=== PATIENT | female | born 1980 | race Caucasian/White ===

== ENCOUNTER 2017-07-08 07:00 | Inpatient (IN) | payer MEDICAID, OTHER, SELFPAY ==
[2017-07-11] MEDS ORDERED: HYDROcodone/Acetaminophen 5/325 mg Tablet PO PRN ×2 (07:07→20:42)
[2017-07-11] MEDS ORDERED: Acetaminophen 500 MG TAB PO PRN (07:07)
[2017-07-11] MEDS ORDERED: LR 500 ML/Oxytocin 10 units 500 ML IV SCH ×2 (07:07)
[2017-07-11] MEDS ORDERED: Ibuprofen 800 MG TAB PO PRN (07:07)
[2017-07-11] MEDS ORDERED: Promethazine HCl 25 MG/ML VIAL IM PRN ×2 (07:07→10:35)
[2017-07-11] MEDS ORDERED: Misoprostol 200 MCG TAB PR PRN (07:07)
[2017-07-11] MEDS ORDERED: Acetaminophen/Codeine 30-300mg Tablet PO PRN ×2 (07:07→20:42)
[2017-07-11] MEDS ORDERED: Ondansetron HCl/PF 4 MG/2 ML Vial IVP PRN ×3 (07:07→20:42)
[2017-07-11] MEDS ORDERED: Lidocaine 1% (PF) 30 ML VIAL SC PRN (07:07)
[2017-07-11] MEDS: Lactated Ringer's 1,000 ML IV SCH ×2 (07:40→09:33)
[2017-07-11 08:02] VITALS: BMI 32.5
[2017-07-11 08:10] LABS: Hemoglobin 13.5 g/dL (12.0-16.0); Mean Corpuscular HGB CONC 34.4 g/dL (32.0-36.0); Mean Corpuscular Volume 90.1 fl (81.0-99.0); Mean Platelet Volume 8.8 fL (7.4-10.4); Platelet Count 138 thou/uL (130-400); RBC Distribution Width 12.1 % (11.5-14.5); Red Blood Cell (RBC) Count 4.36 mill/uL (4.20-5.40); White Blood Cell (WBC) Count 6.7 thou/uL (4.8-10.8)
[2017-07-11 08:32] LABS: Syphilis Antibody Nonreactive (Nonreactive); Syphilis Antibody Index 0.04 S/CO (<1.00 Non-Reactive)
[2017-07-11 08:34] LABS: HBSAg Index 0.11 S/CO (0-0.99); Hep B Surf Ag Non-Reactive S/CO (NonReactive)
[2017-07-11] MEDS ORDERED: Fentanyl 4 mcg/Marc 0.1% Cadd 100 ML ONE (08:40)
[2017-07-11] MEDS ORDERED: Acetaminophen 325 MG TAB PO PRN (10:35)
[2017-07-11] MEDS ORDERED: Lactated Ringer's 500 ML IV PRN (10:35)
[2017-07-11] MEDS ORDERED: ePHEDrine/0.9% NaCl/PF SYRINGE 50 mg/10 ml SLOW IVP PRN (10:35)
[2017-07-11] MEDS ORDERED: Eucerin (Mineral Oil/Petrolatum,White) 30 gm Jar TOP PRN (10:35)
[2017-07-11] MEDS ORDERED: Naloxone HCl 0.4 mg/ml Vial IVP PRN ×2 (10:35)
[2017-07-11] MEDS ORDERED: diphenhydrAMINE 50 MG/ML VIAL IVP PRN (10:35)
[2017-07-11] MEDS ORDERED: Communication Order-Pharmacy FS SCH (10:45)
[2017-07-11] MEDS ORDERED: Fentanyl 4mcg/Marcaine 0.1% Cassette 100 ML EPIDURAL SCH (10:45)
[2017-07-11] MEDS: LR / Pitocin 40 units/1000 ml 1,000 ML IV PRN ×2 (16:54→18:09)
[2017-07-11] MEDS ORDERED: Milk Of Magnesia 30 ML UDCUP PO PRN (20:42)
[2017-07-11] MEDS ORDERED: Lanolin Ointment 7 GM TUBE TOP PRN (20:42)
[2017-07-11] MEDS ORDERED: diphenhydrAMINE 25 MG CAP PO PRN (20:42)
[2017-07-11] MEDS ORDERED: LR / Pitocin 40 units/1000 ml 1,000 ML IV SCH (20:42)
[2017-07-11] MEDS ORDERED: Benzocaine/Menthol 20-0.5% 60 ML CAN TOP PRN (20:42)
[2017-07-11] MEDS ORDERED: Preparation H Ointment 28 GM TUBE PR PRN (20:42)
[2017-07-11] MEDS ORDERED: Bisacodyl 10 MG SUPP PR PRN (20:42)
[2017-07-11] MEDS: Ibuprofen 800 MG TAB PO SCH (22:22)
[2017-07-11] MEDS: Docusate Calcium (SURFAK) 240 MG CAP PO SCH (22:23)
--- NOTE | 2017-07-12 01:05 | OP ---
DATE OF SURGERY: 07/11/2017 PREOPERATIVE DIAGNOSIS: A 38-week diamniotic dichorionic twin gestation in vertex-vertex presentatio n in labor. POSTOPERATIVE DIAGNOSIS: A 38-week diamniotic dichorionic twin gestation in vertex-vertex presentati on in labor. PROCEDURE: Normal spontaneous vaginal delivery and repair of first degree midline laceration, no com plications. The patient was admitted early on the day of delivery for induction at term 38 weeks with di-di twins in vertex-vertex presentation. The patient underwent amniotomy and Pitocin for induction with good progression of labor. The patient became complete and was transferred to the operating room for plan monika normal vaginal delivery. MIL[employer]IST laborist, Dr. Sandoval, was on standby in the room for attendance as well as nursery team. PROCEDURE IN DETAIL: The perineum was prepped and draped in the usual technique The patient complet e and pushing, normal spontaneous vaginal delivery of a viable female via vertex presentation without difficulty. breathed and cried spontaneously. Cord was clamped and cut, and the infa nt was handed to care of the neonatology team. Cord blood was collected and a cord clamp was placed over this umbilical cord. Noted the patient remained complete with second twin in vertex presentatio n confirmed by ultrasound. The patient pushing with spontaneous rupture of membranes, clear fluid. The patient delivered normal spontaneous vaginal delivery of a viable female from vertex prese ntation without difficulty. Cord was clamped and cut and handed to the care of the neonatolog y team. Cord blood was obtained. The placenta was delivered intact and together without difficulty and appeared complete, there was minimal bleeding noted. Noted there was a small first degree perine al laceration, which was repaired with 3-0 Vicryl in continuous fashion. Hemostasis was adequate. S ponge and instrument counts were correct. ESTIMATED BLOOD LOSS: 400 mL. DELIVERING SURGEON: Deborah Sotelo M.D. WEAPONS OFFICER: Nishi Leonardo, medical student III ANESTHETIC: Epidural. The patient to go to recovery room and babies in level 1 nursery in good condition.
[2017-07-12] MEDS: Ibuprofen 800 MG TAB PO SCH ×3 (06:20→22:01)
[2017-07-12 06:35] LABS: Hemoglobin 11.9 g/dL (12.0-16.0); Mean Corpuscular HGB CONC 33.8 g/dL (32.0-36.0); Mean Corpuscular Volume 91.7 fl (81.0-99.0); Mean Platelet Volume 8.4 fL (7.4-10.4); Platelet Count 113 thou/uL (130-400); RBC Distribution Width 12.2 % (11.5-14.5); Red Blood Cell (RBC) Count 3.83 mill/uL (4.20-5.40); White Blood Cell (WBC) Count 9.5 thou/uL (4.8-10.8)
[2017-07-12] MEDS: Prenatal Vitamin 1 TAB PO SCH (08:50)
[2017-07-12] MEDS: Docusate Calcium (SURFAK) 240 MG CAP PO SCH ×2 (08:50→21:05)
[2017-07-12] MEDS: Ferrous Sulfate 325 MG TAB PO SCH ×2 (08:51→16:48)
[2017-07-12] MEDS: CEFAZOLIN 1 GM, Syringe 2.5 ML in Sterile Water 7.5 ML SLOW IVP SCH ×2 (08:51→16:46)
[2017-07-12] MEDS ORDERED: Lidocaine 2% MPF 10 ML AMP (For Epidural Use) ONE (11:11)
[2017-07-12] MEDS ORDERED: Lidocaine 2% PF 5 ML VIAL ONE (11:11)
[2017-07-13] MEDS: Ibuprofen 800 MG TAB PO SCH ×2 (06:43→14:08)
[2017-07-13] MEDS: Prenatal Vitamin 1 TAB PO SCH (08:39)
[2017-07-13] MEDS: Ferrous Sulfate 325 MG TAB PO SCH (08:39)
[2017-07-13] MEDS: Docusate Calcium (SURFAK) 240 MG CAP PO SCH (08:39)
[2017-07-13 08:41] VITALS: BP 116/56; TEMP 97.6
== END 2017-07-13 15:30 | disposition home or self-care (01) | DRG 775 ==
LOC: L&D 07-11 06:55 → 3SW 07-11 20:16
PROVIDERS: ADMIT Family Medicine; ATTEND Family Medicine
PROC: 10E0XZZ Delivery of Products of Conception, External Approach (ICD-10-PCS; principal; 2017-07-11)
PROC: 3E033VJ Introduction of Other Hormone into Peripheral Vein, Percutaneous Approach (ICD-10-PCS; 2017-07-11)
PROC: 0HQ9XZZ Repair Perineum Skin, External Approach (ICD-10-PCS; 2017-07-11)
PROC: 10907ZC Drainage of Amniotic Fluid, Therapeutic from Products of Conception, Via Natural or Artificial Opening (ICD-10-PCS; 2017-07-11)
DX: O30.043 Twin pregnancy, dichorionic/diamniotic, third trimester (principal); Z37.2 Twins, both liveborn; O70.0 First degree perineal laceration during delivery; Z3A.38 38 weeks gestation of pregnancy; L53.9 Erythematous condition, unspecified
CPT/HCPCS: 36415; 51702; 85027; 86780; 86850; 86900; 86901; 87340; 88307; A4216; J0690; J2001; J2405; J7120